=== PATIENT | female | born 2000 | race Caucasian/White ===

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

== ENCOUNTER 2021-03-02 21:12 | Emergency (ER) | payer OTHER ==
[~2021-03-02 21:12] MED LIST: IBUPROFEN600 MG PO; MACROBID 100 M100 MG PO; NORCO 5-325 TA1 EACH PO; TYLENOL 500 MG500 MG PO
== END 2021-03-02 23:25 | disposition home or self-care (01) ==
LOC: ER1 21:12
DX: M67.432 Ganglion, left wrist (principal)
CPT/HCPCS: 99283

== ENCOUNTER 2021-04-05 17:16 | Emergency (ER) | payer OTHER ==
[2021-04-05 19:28] LABS: HEMOGLOBIN 14.7 gm/dl (12.3-15.3); RED BLOOD COUNT 4.52 M/UL (4.00-5.10); WHITE BLOOD COUNT 12.4 K/UL (4.5-11.0)
[2021-04-05] MEDS ORDERED: PREDNISONE 10 M10 MG PO (20:09)
== END 2021-04-05 20:25 | disposition home or self-care (01) ==
LOC: ER1 17:16
PROVIDERS: Physician Assistant
DX: J02.9 Acute pharyngitis, unspecified (principal)
CPT/HCPCS: 85025; 86403; 87081; 87880; 96374; 99283; J1885

== ENCOUNTER 2021-09-20 15:34 | Emergency (ER) | payer OTHER ==
[~2021-09-20 15:34] MED LIST changes: +PREDNISONE 10 M10 MG PO
[2021-09-20] MEDS ORDERED: IBUPROFEN800 MG PO (16:27)
== END 2021-09-20 17:00 | disposition home or self-care (01) ==
LOC: ER1 15:34
DX: S93.402A Sprain of unspecified ligament of left ankle, initial encounter (principal); W19.XXXA Unspecified fall, initial encounter
CPT/HCPCS: 73590; 73610; 99283; J1885

== ENCOUNTER 2021-10-21 10:47 | Emergency (ER) | payer OTHER ==
[~2021-10-21 10:47] MED LIST changes: +IBUPROFEN800 MG PO
[2021-10-21 11:56] LABS: HEMOGLOBIN 14.9 gm/dl (12.3-15.3); RED BLOOD COUNT 4.77 M/UL (4.00-5.10); WHITE BLOOD COUNT 7.5 K/UL (4.5-11.0)
[2021-10-21 12:27] LABS: BUN/CREATININE RATIO 14 (0-10)
[2021-10-21] MEDS ORDERED: MEDROL DOSEPAK 24 MG PO (13:29)
[2021-10-21] MEDS ORDERED: NAPROXEN500 MG PO (13:29)
[2021-10-21] MEDS ORDERED: CLEOCIN HCL300 MG PO (13:29)
== END 2021-10-21 13:40 | disposition home or self-care (01) ==
LOC: ER1 10:47
PROVIDERS: Physician Assistant Medical
DX: J02.9 Acute pharyngitis, unspecified (principal)
CPT/HCPCS: 80053; 81001; 84703; 85025; 86403; 87081; 87880; 96372; 96374; 99283; J1100